=== PATIENT | female | born 1930 | race Caucasian/White ===

== ENCOUNTER 2019-01-18 19:28 | Emergency (ER) | payer MEDICARE, OTHER ==
[~2019-01-18] VITALS: Ht 167.6 cm; Wt 64.4 kg
[~2019-01-18 19:28] MED LIST: ACETAMINOPHEN325 M1 PO; ACIDOPHILUS1 EAC3 PO; ACIDOPHILUS1 EACH PO; ALBUTEROL2.5 MG/3 M INH; ANALGESIC325 MG PO; ANCEF 1GM1 GM/50 M2 IV; ANTIVERT25 MG PO; APAP650 PO; ASA5UEC PO; ASPIR 8181 MG PO; ASPIRIN EC81 M1 PO; ASPIRIN81 M2 PO; ASTELIN30 ML NS; ATENOLOL 50 MG50 M1 PO; ATORVASTATIN CA40 MG PO; AZITHROMYCIN 2250 MG PO; CARDIZEM CD180 MG PO; CEFUROXIME250 MG PO; COLACE100 MG PO; COLCHICINE0.6 M1 PO; COLCHICINE0.6 MG PO; DILTIAZEM 24HR240 MG PO; DOXYCYCLINE 10100 MG PO; DUONEB 2.5-0.5 M3 ML INH; FUROSEMIDE 40 M40 M1 PO; HYDROCERIN CREA1 JAR TOP; HYDROCODONE-AP1 EAC6 PO; IRON325 PO; K-DUR 20 MEQ T20 MEQ PO; KLOR-CON 1010 MEQ PO; LANOXIN 0.120.125 M1 PO; LASIX 20 MG TAB20 MG PO; LASIX 40 MG TAB40 M2 PO; LATANOPROST2.5 ML OPHTHALMIC; LEVOFLOXACIN750 MG PO; LIDODERM 5%1 PATC1 TRANSDERM; LIPITOR40 MG PO; MECLIZINE HCL25 M1 PO; MINERIN CREME454 GM TOP; MINERIN CREME454 GM TP; MIRALAX17 GM PO; MUCUS ER600 MG PO; NEBULIZER MISCELL; NEXIUM40 MG PO; NITROGLYCERIN0.4 MG SUBLING; PANTOPRAZOLE SO40 M1 PO; PAROXETINE HCL20 MG PO; PAXIL10 MG; POTASSIUM20 PO; PRADAXA150 MG PO; PREDNISONE10 MG PO; PRILOSEC 20 MG20 MG PO; RANEXA500 MG PO; SYNTHROID 0.0.088 M1 PO; TENORMIN50 MG PO; TIROSINT88 MCG PO; TRAZODONE HCL50 MG PO; TUMS PO; TYLENOL325 MG PO; VESICARE10 M1 PO; VITAMIN D 5050000 I1 PO; ZANTAC 150MG T150 MG PO; ZITHROMAX250 MG PO; [UNRECOGNIZED DRUG - OTHER] SL
[2019-01-18] MEDS ORDERED: HYDROCODONE-AP1 EAC6 PO (21:13)
[2019-01-18 22:37] VITALS: BP 124/71
== END 2019-01-18 22:37 | disposition home or self-care (01) ==
LOC: M.ERS 19:28
DX: S52.691A Other fracture of lower end of right ulna, initial encounter for closed fracture (principal); S60.222A Contusion of left hand, initial encounter; Z86.2 Personal history of diseases of the blood and blood-forming organs and certain disorders involving the immune mechanism; W18.2XXA Fall in (into) shower or empty bathtub, initial encounter; Y92.009 Unspecified place in unspecified non-institutional (private) residence as the place of occurrence of the external cause; Y93.E1 Activity, personal bathing and showering; Y99.8 Other external cause status